=== PATIENT | female | born 1940 | race Caucasian/White ===

== ENCOUNTER 2025-07-09 17:53 | Inpatient (IN) | payer MEDICARE, MEDICAID ==
[~2025-07-09] VITALS: Ht 154.9 cm; Wt 60.8 kg
[~2025-07-09 17:53] MED LIST: AMLO5TAB88 PO; ENOX40SY27 SQ; METO-385 PO; TOPUD PO
[2025-07-09 17:58] VITALS: O2SAT 99
[2025-07-09 18:57] LABS: BASOPHILS % 0.8 % (0.0-2.0); EOSINOPHILS % 1.2 % (0.0-5.0); HEMATOCRIT. 23.6 % (36.0-48.0); HEMOGLOBIN. 7.6 g/dL (12.0-16.0); LYMPHOCYTES % 10.1 % (20.0-50.0); MEAN PLATELET VOLUME 9.8 fl (7.4-10.4); MONOCYTES % 7.3 % (2.0-8.0); NEUTROPHILS % 80.6 % (40.0-76.0); PLATELET 94 x1000/uL (130-400); RED BLOOD CELL COUNT 2.56 mill/uL (4.2-5.4); RED CELL DISTRIBUTION WIDTH 16.9 % (11.6-14.6)
[2025-07-09 19:10] LABS: INR 1.1
[2025-07-09 19:11] LABS: CREATININE 1.8 mg/dL (0.6-1.0); UREA NITROGEN BLOOD 40.0 mg/dL (9-23)
[2025-07-09] MEDS: ONDANSETRON HCL 4MG/2ML INJ IV ONE (19:15)
[2025-07-09] MEDS: SODIUM ZIRCONIUM CYCLOSILICATE 10GM/PACKET PO ONE (20:00)
[2025-07-10 03:00] VITALS: BP 161/48; PULSE 67; RESP 19; TEMP 36.2; TEMP 36.2512; O2SAT 97
[2025-07-10 08:00] VITALS: BP 160/51; PULSE 66; RESP 20; TEMP 36.1; O2SAT 99
[2025-07-10] MEDS ORDERED: ONDANSETRON HCL 4MG/2ML INJ IV PRN (09:15)
[2025-07-10] MEDS ORDERED: IPRATROPIUM/ALBUTEROL 0.5-3(2.5)MG/3ML NEB HHN PRN (09:15)
[2025-07-10] MEDS ORDERED: CLONIDINE 0.1MG TABLET PO PRN (09:15)
[2025-07-10] MEDS ORDERED: ACETAMINOPHEN 325MG TABLET PO PRN ×2 (09:15)
[2025-07-10] MEDS ORDERED: DOCUSATE SODIUM 100MG CAPSULE PO PRN (09:15)
[2025-07-10] MEDS ORDERED: DEXTROSE 50% WATER 50ML SYRINGE IV PRN (09:15)
[2025-07-10] MEDS: PANTOPRAZOLE SODIUM 40 MG/VIAL IV SCH (09:32)
[2025-07-10] MEDS: HYDRALAZINE HCL 25MG TABLET PO SCH (09:57)
[2025-07-10] MEDS: PANTOPRAZOLE SODIUM 40 MG/VIAL IV ONE (09:57)
[2025-07-10 12:00] VITALS: BP 129/53; PULSE 69; RESP 18; TEMP 36.2; O2SAT 100
[2025-07-10] MEDS: INSULIN LISPRO 100 UNITS/ML SUBCUT SCH (13:00)
[2025-07-10] MEDS: BLOOD SUGAR DIAGNOSTIC STRIP TEST SCH (13:00)
[2025-07-10 16:00] VITALS: BP 136/43; PULSE 71; RESP 18; TEMP 36.3; O2SAT 100
[2025-07-10] MEDS: SUCRALFATE 1G TABLET PO SCH (17:33)
[2025-07-10 20:00] VITALS: BP 144/41; PULSE 71; RESP 19; TEMP 36.3; O2SAT 98
[2025-07-10 22:10] LABS: INR 1.1
[2025-07-10 22:12] LABS: CREATINE KINASE MB FRACTION 3.4 ng/mL (0.5-3.6)
[2025-07-10 22:13] LABS: BASOPHILS % 0.5 % (0.0-2.0); CREATININE 1.8 mg/dL (0.6-1.0); EOSINOPHILS % 1.5 % (0.0-5.0); HEMATOCRIT. 21.5 % (36.0-48.0); HEMOGLOBIN. 7.1 g/dL (12.0-16.0); LYMPHOCYTES % 10.3 % (20.0-50.0); MEAN PLATELET VOLUME 10.0 fl (7.4-10.4); MONOCYTES % 7.9 % (2.0-8.0); NEUTROPHILS % 79.8 % (40.0-76.0); PLATELET 89 x1000/uL (130-400); RED BLOOD CELL COUNT 2.36 mill/uL (4.2-5.4); RED CELL DISTRIBUTION WIDTH 17.4 % (11.6-14.6); UREA NITROGEN BLOOD 44 mg/dL (9-23)
[2025-07-10 22:15] LABS: ASPARTATE AMINOTRANSFERASE 23 IU/L (<34); BILIRUBIN DIRECT 0.3 mg/dL (<=3.0); BILIRUBIN TOTAL 0.8 mg/dL (0.1-1.0); PHOSPHORUS 3.4 mg/dL (2.5-4.9); PROTEIN TOTAL 5.3 g/dL (6.0-8.3)
[2025-07-10 22:16] LABS: TROPONIN I HIGH SENSITIVITY 25 ng/L (3.0-34)
[2025-07-11] VITALS (9 sets, daily range): BP systolic 101–156; BP diastolic 40–80; PULSE 71–78; RESP 17–20; TEMP 36.2–37; O2SAT 96–100
[2025-07-11 06:10] LABS: BASOPHILS % 0.4 % (0.0-2.0); EOSINOPHILS % 2.0 % (0.0-5.0); LYMPHOCYTES % 14.1 % (20.0-50.0); MEAN PLATELET VOLUME 9.6 fl (7.4-10.4); MONOCYTES % 9.7 % (2.0-8.0); NEUTROPHILS % 73.8 % (40.0-76.0); PLATELET 78 x1000/uL (130-400); RED BLOOD CELL COUNT 2.18 mill/uL (4.2-5.4); RED CELL DISTRIBUTION WIDTH 17.2 % (11.6-14.6)
[2025-07-11 06:14] LABS: CREATININE 1.7 mg/dL (0.6-1.0)
[2025-07-11 06:15] LABS: UREA NITROGEN BLOOD 39 mg/dL (9-23)
[2025-07-11 06:17] LABS: FOLIC ACID (FOLATE) SERUM 2.29 ng/mL (>5.38); PHOSPHORUS 3.4 mg/dL (2.5-4.9)
[2025-07-11 06:18] LABS: HEMATOCRIT. 20.0 % (36.0-48.0); HEMOGLOBIN. 6.6 g/dL (12.0-16.0); VITAMIN B12 SERUM 1186 pg/mL (211-911)
[2025-07-11 12:12] LABS: BASOPHILS % 0.4 % (0.0-2.0); EOSINOPHILS % 1.9 % (0.0-5.0); HEMATOCRIT. 21.5 % (36.0-48.0); LYMPHOCYTES % 11.7 % (20.0-50.0); MEAN PLATELET VOLUME 9.7 fl (7.4-10.4); MONOCYTES % 9.0 % (2.0-8.0); NEUTROPHILS % 77.0 % (40.0-76.0); PLATELET 76 x1000/uL (130-400); RED BLOOD CELL COUNT 2.30 mill/uL (4.2-5.4); RED CELL DISTRIBUTION WIDTH 17.8 % (11.6-14.6)
[2025-07-11 12:45] LABS: HEMOGLOBIN. 6.8 g/dL (12.0-16.0)
[2025-07-11] MEDS: IRON SUCROSE COMPLEX 100 MG/5 ML ML IV SCH (12:50)
[2025-07-11] MEDS: FOLIC ACID 1MG TABLET PO SCH (12:50)
[2025-07-11 20:33] LABS: BASOPHILS % 0.6 % (0.0-2.0); EOSINOPHILS % 1.8 % (0.0-5.0); HEMATOCRIT. 28.6 % (36.0-48.0); HEMOGLOBIN. 9.6 g/dL (12.0-16.0); LYMPHOCYTES % 8.6 % (20.0-50.0); MEAN PLATELET VOLUME 9.4 fl (7.4-10.4); MONOCYTES % 8.9 % (2.0-8.0); NEUTROPHILS % 80.1 % (40.0-76.0); PLATELET 77 x1000/uL (130-400); RED BLOOD CELL COUNT 3.07 mill/uL (4.2-5.4); RED CELL DISTRIBUTION WIDTH 17.0 % (11.6-14.6)
[2025-07-11 21:26] LABS: HEPATITIS A AB IGM NEGATIVE (Negative)
[2025-07-11 21:27] LABS: HEPATITIS B CORE AB IGM NEGATIVE (Negative); HEPATITIS C AB NON REACTIVE (Neg) (Negative)
[2025-07-12] VITALS (9 sets, daily range): BP systolic 110–163; BP diastolic 38–81; PULSE 77–82; RESP 16–20; TEMP 36.114–36.7; O2SAT 97–99
[2025-07-12] MEDS: DEXT 5%/0.45% NACL 1000ML 1,000 ML IV SCH (00:07)
[2025-07-12 06:10] LABS: CREATININE 1.9 mg/dL (0.6-1.0)
[2025-07-12 06:11] LABS: UREA NITROGEN BLOOD 37 mg/dL (9-23)
[2025-07-12 06:13] LABS: CREATININE 1.9 mg/dL (0.6-1.0); PHOSPHORUS 3.1 mg/dL (2.5-4.9)
[2025-07-12 06:14] LABS: UREA NITROGEN BLOOD 38 mg/dL (9-23)
[2025-07-12 06:15] LABS: ASPARTATE AMINOTRANSFERASE 22 IU/L (<34)
[2025-07-12 06:16] LABS: BILIRUBIN TOTAL 0.9 mg/dL (0.1-1.0); PROTEIN TOTAL 5.3 g/dL (6.0-8.3)
[2025-07-12 06:22] LABS: BASOPHILS % 0.5 % (0.0-2.0); EOSINOPHILS % 2.6 % (0.0-5.0); HEMATOCRIT. 27.0 % (36.0-48.0); HEMOGLOBIN. 9.0 g/dL (12.0-16.0); LYMPHOCYTES % 13.7 % (20.0-50.0); MEAN PLATELET VOLUME 9.7 fl (7.4-10.4); MONOCYTES % 10.0 % (2.0-8.0); NEUTROPHILS % 73.2 % (40.0-76.0); PLATELET 67 x1000/uL (130-400); RED BLOOD CELL COUNT 2.92 mill/uL (4.2-5.4); RED CELL DISTRIBUTION WIDTH 16.8 % (11.6-14.6)
[2025-07-12 06:50] LABS: INR 1.0
[2025-07-12] MEDS ORDERED: LIDOCAINE HCL 1% 10 MG/ML 10ML VIAL ONE (07:54)
[2025-07-12] MEDS ORDERED: FOLIC ACID 1MG TABLET PO SCH (09:00)
[2025-07-13] VITALS: BP 110/56; PULSE 82; RESP 18; TEMP 36.5; O2SAT 97
[2025-07-13 04:00] VITALS: BP 153/53; PULSE 77; RESP 17; TEMP 37.1; O2SAT 98
[2025-07-13 08:20] VITALS: BP 105/32; PULSE 83; RESP 18; TEMP 36.4; O2SAT 98
[2025-07-13 08:50] LABS: INR 1.1
[2025-07-13 08:56] LABS: BASOPHILS % 0.6 % (0.0-2.0); EOSINOPHILS % 2.7 % (0.0-5.0); HEMATOCRIT. 26.6 % (36.0-48.0); HEMOGLOBIN. 8.8 g/dL (12.0-16.0); LYMPHOCYTES % 12.3 % (20.0-50.0); MEAN PLATELET VOLUME 9.6 fl (7.4-10.4); MONOCYTES % 12.9 % (2.0-8.0); NEUTROPHILS % 71.5 % (40.0-76.0); PLATELET 70 x1000/uL (130-400); RED BLOOD CELL COUNT 2.86 mill/uL (4.2-5.4); RED CELL DISTRIBUTION WIDTH 17.1 % (11.6-14.6)
[2025-07-13 09:16] LABS: CREATININE 1.8 mg/dL (0.6-1.0); UREA NITROGEN BLOOD 35 mg/dL (9-23)
[2025-07-13 09:18] LABS: PHOSPHORUS 3.3 mg/dL (2.5-4.9)
[2025-07-13] MEDS ORDERED: SIMETHICONE 40 MG/0.6 ML 15ML ONE (09:21)
[2025-07-13] MEDS ORDERED: PROPOFOL 200MG/20ML VIAL IV ONE (09:49)
[2025-07-13] MEDS ORDERED: PHENYLEPHRINE HCL 10MG/ML 1ML IV ONE (09:52)
[2025-07-13] MEDS ORDERED: PANTOPRAZOLE SODIUM 40 MG/VIAL IV SCH (10:30)
[2025-07-13 12:10] VITALS: BP 124/37; PULSE 80; RESP 19; TEMP 36.2; O2SAT 96
[2025-07-13] MEDS: GUAIFENESIN/DM 600MG/30MG ER TAB 12HR PO PRN (12:32)
[2025-07-13] MEDS: PANTOPRAZOLE SODIUM 40 MG/VIAL IV SCH (13:00)
[2025-07-13] MEDS ORDERED: ONDANSETRON HCL 4MG/2ML INJ IV PRN (13:00)
[2025-07-13] MEDS: DEXTROSE 5% WATER 1,000 ML IV SCH (13:36)
[2025-07-13 15:53] VITALS: BP 135/51; PULSE 75; RESP 18; TEMP 36.3; O2SAT 97
[2025-07-13 20:00] VITALS: BP 119/50; PULSE 78; RESP 20; TEMP 36.3; O2SAT 100
[2025-07-13] MEDS: PANTOPRAZOLE SODIUM 40 MG/VIAL IV ONE (21:55)
[2025-07-14] VITALS (9 sets, daily range): BP systolic 127–143; BP diastolic 46–106; PULSE 74–81; RESP 16–20; TEMP 36.16956–36.9; O2SAT 95–99
[2025-07-14 07:51] LABS: CREATININE 1.9 mg/dL (0.6-1.0); UREA NITROGEN BLOOD 33 mg/dL (9-23)
[2025-07-14 07:53] LABS: PHOSPHORUS 3.1 mg/dL (2.5-4.9)
[2025-07-14 07:54] LABS: BASOPHILS % 0.3 % (0.0-2.0); EOSINOPHILS % 2.0 % (0.0-5.0); HEMATOCRIT. 23.9 % (36.0-48.0); HEMOGLOBIN. 8.2 g/dL (12.0-16.0); LYMPHOCYTES % 11.7 % (20.0-50.0); MEAN PLATELET VOLUME 9.4 fl (7.4-10.4); MONOCYTES % 10.8 % (2.0-8.0); NEUTROPHILS % 75.2 % (40.0-76.0); PLATELET 58 x1000/uL (130-400); RED BLOOD CELL COUNT 2.58 mill/uL (4.2-5.4); RED CELL DISTRIBUTION WIDTH 17.2 % (11.6-14.6)
[2025-07-15] VITALS (10 sets, daily range): BP systolic 129–146; BP diastolic 45–62; PULSE 68–96; RESP 18–20; TEMP 36.28068–36.7; O2SAT 96–100
[2025-07-15 08:27] LABS: BASOPHILS % 0.4 % (0.0-2.0); EOSINOPHILS % 2.3 % (0.0-5.0); HEMATOCRIT. 24.2 % (36.0-48.0); HEMOGLOBIN. 8.1 g/dL (12.0-16.0); LYMPHOCYTES % 10.9 % (20.0-50.0); MEAN PLATELET VOLUME 9.1 fl (7.4-10.4); MONOCYTES % 10.5 % (2.0-8.0); NEUTROPHILS % 75.9 % (40.0-76.0); PLATELET 58 x1000/uL (130-400); RED BLOOD CELL COUNT 2.59 mill/uL (4.2-5.4); RED CELL DISTRIBUTION WIDTH 17.5 % (11.6-14.6)
[2025-07-15] MEDS: DOCUSATE SODIUM 100MG CAPSULE PO SCH (09:39)
[2025-07-15] MEDS: ASCORBIC ACID 500 MG TABLET PO SCH (09:40)
[2025-07-15] MEDS: FERROUS SULFATE 325MG TABLET PO SCH (09:40)
[2025-07-15 10:55] LABS: CREATININE 2.0 mg/dL (0.6-1.0); UREA NITROGEN BLOOD 31 mg/dL (9-23)
[2025-07-15 10:57] LABS: PHOSPHORUS 3.4 mg/dL (2.5-4.9)
[2025-07-15 12:17] LABS: CREATININE 2.1 mg/dL (0.6-1.0); UREA NITROGEN BLOOD 35 mg/dL (9-23)
[2025-07-15 12:19] LABS: ASPARTATE AMINOTRANSFERASE 22 IU/L (<34); BILIRUBIN DIRECT 0.4 mg/dL (<=3.0); PHOSPHORUS 3.2 mg/dL (2.5-4.9)
[2025-07-15 12:20] LABS: BILIRUBIN TOTAL 1.0 mg/dL (0.1-1.0); PROTEIN TOTAL 5.4 g/dL (6.0-8.3)
[2025-07-15] MEDS: SENNOSIDES 8.6MG TABLET PO SCH (21:00)
[2025-07-16 00:19] VITALS: BP 148/52; PULSE 84; RESP 20; TEMP 36.3; O2SAT 100
[2025-07-16 04:37] VITALS: BP 154/50; PULSE 66; RESP 20; TEMP 36.7; O2SAT 100
[2025-07-16 08:00] VITALS: BP 163/54; PULSE 75; RESP 20; TEMP 36.4; O2SAT 100
[2025-07-16 08:18] LABS: HEMATOCRIT. 23.9 % (36.0-48.0); HEMOGLOBIN. 7.9 g/dL (12.0-16.0); MEAN PLATELET VOLUME 9.1 fl (7.4-10.4); PLATELET 69 x1000/uL (130-400); RED BLOOD CELL COUNT 2.56 mill/uL (4.2-5.4); RED CELL DISTRIBUTION WIDTH 16.9 % (11.6-14.6)
[2025-07-16 08:44] LABS: CREATININE 2.1 mg/dL (0.6-1.0)
[2025-07-16] MEDS ORDERED: FOLI-43 PO (08:44)
[2025-07-16] MEDS ORDERED: DOCU-422 PO (08:44)
[2025-07-16] MEDS ORDERED: FERR-63 PO (08:44)
[2025-07-16] MEDS ORDERED: ASCO500T20 PO (08:44)
[2025-07-16] MEDS ORDERED: SUCR1TAB PO (08:44)
[2025-07-16] MEDS ORDERED: PANT40TA51 MT (08:44)
[2025-07-16 08:45] LABS: UREA NITROGEN BLOOD 31 mg/dL (9-23)
[2025-07-16 08:48] LABS: PHOSPHORUS 3.4 mg/dL (2.5-4.9)
[2025-07-16 12:00] VITALS: BP 125/47; PULSE 81; RESP 20; TEMP 36.4; O2SAT 98
[2025-07-16] MEDS: EPOETIN ALFA-EPBX 4,000 UNITS/ML VIAL SUBCUT NR (12:06)
[2025-07-16 16:00] VITALS: BP 146/44; PULSE 83; RESP 18; TEMP 36.5; O2SAT 100
[2025-07-16 20:00] VITALS: BP 159/52; PULSE 75; RESP 19; TEMP 36.9; O2SAT 100
[2025-07-17] VITALS (7 sets, daily range): BP systolic 146–179; BP diastolic 44–82; PULSE 65–83; RESP 16–20; TEMP 36.1–36.6; O2SAT 96–100
[2025-07-17 09:16] LABS: BASOPHILS % 0.5 % (0.0-2.0); EOSINOPHILS % 1.9 % (0.0-5.0); HEMATOCRIT. 25.5 % (36.0-48.0); HEMOGLOBIN. 8.6 g/dL (12.0-16.0); LYMPHOCYTES % 14.2 % (20.0-50.0); MEAN PLATELET VOLUME 9.1 fl (7.4-10.4); MONOCYTES % 12.5 % (2.0-8.0); NEUTROPHILS % 70.9 % (40.0-76.0); PLATELET 68 x1000/uL (130-400); RED BLOOD CELL COUNT 2.72 mill/uL (4.2-5.4); RED CELL DISTRIBUTION WIDTH 17.4 % (11.6-14.6)
[2025-07-17 09:27] LABS: CREATININE 2.0 mg/dL (0.6-1.0)
[2025-07-17 09:28] LABS: UREA NITROGEN BLOOD 31 mg/dL (9-23)
[2025-07-17 09:30] LABS: PHOSPHORUS 2.4 mg/dL (2.5-4.9)
[2025-07-17 14:20] LABS: BAND% 15.0 % (1.0-6.0); EOSINOPHILS % MANUAL 1.0 % (0.0-5.0); LYMPHOCYTES % MANUAL 12.0 % (20.0-60.0); MONOCYTES % MANUAL 8.0 % (2.0-8.0); NEUTROPHILS % MANUAL 64.0 % (45.0-75.0)
[2025-07-17 14:21] LABS: PLATELET ESTIMATE DECREASED
[2025-07-18] VITALS: BP 134/62; PULSE 82; RESP 17; TEMP 35.7
[2025-07-18 08:00] VITALS: BP 145/52; PULSE 81; RESP 20; TEMP 36.6; O2SAT 99
[2025-07-18 12:00] VITALS: BP 177/57; PULSE 80; RESP 20; TEMP 36.3; O2SAT 100
[2025-07-18 16:00] VITALS: BP 131/56; PULSE 85; RESP 20; TEMP 36.4; O2SAT 97
[2025-07-18 20:00] VITALS: BP 148/47; PULSE 82; RESP 18; TEMP 36.2; O2SAT 99
[2025-07-19] VITALS: BP 135/42; PULSE 82; RESP 18; TEMP 36.2; O2SAT 97
[2025-07-19 04:00] VITALS: BP 136/36; PULSE 81; RESP 18; TEMP 36.1; O2SAT 96
[2025-07-19 08:00] VITALS: BP 126/40; PULSE 80; RESP 18; TEMP 36.2; O2SAT 96
[2025-07-19 12:00] VITALS: BP 148/47; PULSE 84; RESP 19; TEMP 36.1; O2SAT 96
[2025-07-19 12:34] VITALS: BP 126/55; PULSE 80; RESP 18; TEMP 97.2
[2025-07-19] MEDS ORDERED: AMLO5TAB88 PO (14:03)
[2025-07-19] MEDS ORDERED: METO-385 PO (14:03)
[2025-07-19] MEDS ORDERED: FOLI-43 PO (14:03)
[2025-07-19] MEDS ORDERED: PANT40TA51 MT (14:03)
[2025-07-19] MEDS ORDERED: DOCU-422 PO (14:03)
[2025-07-19] MEDS ORDERED: SUCR1TAB PO (14:03)
[2025-07-19] MEDS ORDERED: ASCO500T20 PO (14:03)
[2025-07-19] MEDS ORDERED: FERR-63 PO (14:03)
[2025-07-19 16:00] VITALS: BP 143/50; PULSE 77; RESP 18; TEMP 36.1; O2SAT 98
== END 2025-07-19 20:49 | disposition home health service (06) | DRG 384 ==
LOC: ER 17:53 → 7WST 21:36 → EDBEDREQ 21:39 → EDBEDREQTM 21:39 → ENRESERV 23:09 → 7WST 07-10 02:45 → 6EST 07-18 01:36
PROVIDERS: ADMIT Internal Medicine; ATTEND Internal Medicine
PROC: 30233N1 Transfusion of Nonautologous Red Blood Cells into Peripheral Vein, Percutaneous Approach (ICD-10-PCS; 2025-07-11)
PROC: 02HV33Z Insertion of Infusion Device into Superior Vena Cava, Percutaneous Approach (ICD-10-PCS; 2025-07-12)
PROC: B548ZZA Ultrasonography of Superior Vena Cava, Guidance (ICD-10-PCS; 2025-07-12)
PROC: B5181ZA Fluoroscopy of Superior Vena Cava using Low Osmolar Contrast, Guidance (ICD-10-PCS; 2025-07-12)
PROC: 30233R1 Transfusion of Nonautologous Platelets into Peripheral Vein, Percutaneous Approach (ICD-10-PCS; 2025-07-12)
PROC: 0DB68ZX Excision of Stomach, Via Natural or Artificial Opening Endoscopic, Diagnostic (ICD-10-PCS; principal; 2025-07-13)
PROC: 0DB78ZX Excision of Stomach, Pylorus, Via Natural or Artificial Opening Endoscopic, Diagnostic (ICD-10-PCS; 2025-07-13)
DX: K27.3 Acute peptic ulcer, site unspecified, without hemorrhage or perforation (principal); D61.818 Other pancytopenia; D69.6 Thrombocytopenia, unspecified; J90 Pleural effusion, not elsewhere classified; R18.8 Other ascites; N17.9 Acute kidney failure, unspecified; D72.819 Decreased white blood cell count, unspecified; K74.1 Hepatic sclerosis; E11.22 Type 2 diabetes mellitus with diabetic chronic kidney disease; D50.9 Iron deficiency anemia, unspecified; N18.30 Chronic kidney disease, stage 3 unspecified; I12.9 Hypertensive chronic kidney disease with stage 1 through stage 4 chronic kidney disease, or unspecified chronic kidney disease; K74.60 Unspecified cirrhosis of liver; K29.60 Other gastritis without bleeding; K44.9 Diaphragmatic hernia without obstruction or gangrene; K22.2 Esophageal obstruction; E78.5 Hyperlipidemia, unspecified; E87.5 Hyperkalemia; K31.7 Polyp of stomach and duodenum; E53.8 Deficiency of other specified B group vitamins; Z96.649 Presence of unspecified artificial hip joint; Z79.4 Long term (current) use of insulin; Z87.11 Personal history of peptic ulcer disease; Z79.899 Other long term (current) drug therapy; Z82.49 Family history of ischemic heart disease and other diseases of the circulatory system
CPT/HCPCS: 36415; 36573; 74176; 76700; 76705; 80048; 80053; 80076; 82150; 82270; 82550; 82553; 82607; 82728; 82746; 82962; 83036; 83540; 83550; 83735; 84100; 84484; 85014; 85018; 85025; 85044; 86705; 86709; 86850; 86900; 86920; 87340; 88305; 88312; 88313; 93005; 93306; 93970; 97162; 97166; 99285; C1725; J0885; J1815; J2003; J2371; J2470; J2704; J7070; P9016; P9034